=== PATIENT | female | born 2000 | race Caucasian/White ===

== ENCOUNTER 2019-04-10 02:24 | Emergency (ER) | payer SELFPAY ==
[~2019-04-10] VITALS: Ht 165.1 cm; Wt 52.2 kg
[2019-04-10 02:32] VITALS: BP 118/86
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
[2019-04-10] MEDS ORDERED: LR 1000ml 1,000 ML IV ONE (02:45)
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
--- NOTE | 2019-04-10 03:26 | NUR ---
ED Nurse Note: [employer] at bedside
--- NOTE | 2019-04-10 03:30 | NUR ---
ED Nurse Note: mother at bedside
[2019-04-10 04:40] VITALS: BP 124/82
--- NOTE | 2019-04-10 05:30 | NUR ---
ED Nurse Note: pt is currently asleep in bed. pt was provided blanket.
--- NOTE | 2019-04-10 06:00 | NUR ---
ED Nurse Note: urine specimen collected sent to lab
[2019-04-10 06:05] LABS: EOSINOPHILS % (AUTO) 0.2 % (0.0-3.0); HEMOGLOBIN 13.1 G/DL (12.0-16.0); LYMPHOCYTES % (AUTO) 14.7 % (20.0-45.0); MEAN CORPUSCULAR VOLUME 96 FL (80-99); MONOCYTES % (AUTO) 2.8 % (1.0-10.0); NEUTROPHILS % (AUTO) 81.3 % (45.0-75.0); PLATELET COUNT 179 K/UL (150-450); RED BLOOD COUNT 4.19 M/UL (4.20-5.40); RED CELL DISTRIBUTION WIDTH 11.7 % (11.6-14.8); WHITE BLOOD COUNT 8.6 K/UL (4.8-10.8)
[2019-04-10 06:30] VITALS: BP 119/79
[2019-04-10 06:49] LABS: ANION GAP 12 mmol/L (5-15); BLOOD UREA NITROGEN 3 mg/dL (7-18); CALCIUM 8.4 MG/DL (8.5-10.1); CARBON DIOXIDE 24 MMOL/L (21-32); CHLORIDE 111 MMOL/L (98-107); CREATININE 0.8 MG/DL (0.55-1.30); POTASSIUM 4.1 MMOL/L (3.5-5.1); SODIUM 147 MMOL/L (136-145)
[2019-04-10 06:54] LABS: ALANINE AMINOTRANSFERASE 13 U/L (12-78); ALBUMIN 4.1 G/DL (3.4-5.0); ALBUMIN/GLOBULIN RATIO 1.3 (1.0-2.7); ALKALINE PHOSPHATASE 73 U/L (46-116); ASPARTATE AMINO TRANSFERASE 15 U/L (15-37); BILIRUBIN,TOTAL 0.4 MG/DL (0.2-1.0)
--- NOTE | 2019-04-10 07:00 | NUR ---
HAND-OFF: Report given to tristian cowart.
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
[2019-04-10 08:05] VITALS: BP 122/75
--- NOTE | 2019-04-10 08:05 | NUR ---
ED Nurse Note: Pt can not be found within hospital parameters. [employer] came in and provided with pt information of address. Dr Carias was notified. Pt AAO x4 and ambulates with steady gait and left with her friend. Pt has no ID band/IV access.
== END 2019-04-10 08:05 | disposition home or self-care (01) ==
LOC: EMR 02:56
DX: F10.129 Alcohol abuse with intoxication, unspecified (principal); Y90.6 Blood alcohol level of 120-199 mg/100 ml
CPT/HCPCS: 36415; 80053; 80307; 81025; 85025; 96360; 99284; G0480; 80329